=== PATIENT | female | born 1975 | race Caucasian/White ===

== ENCOUNTER 2017-04-28 17:44 | Emergency (ER) | payer BC ==
[2017-04-28] MEDS ORDERED: MECLIZINE HCL 25 MG TABLET PO ONE (18:33)
[2017-04-28] MEDS ORDERED: MECLIZINE HCL 25 MG TABLET ONE (18:37)
[2017-04-28 18:45] LABS: Hematocrit 39.9 % (37.0-47.0); Hemoglobin 13.5 gm/dL (12.5-16.0); Mean Cell Volume 91.1 fl (78-100); Mean Corpuscular Hemoglobin 30.8 pg (27-31); Mean Corpuscular Hgb Conc 33.8 g/dl (32-36); Mean Platelet Volume 9.6 fl (6.0-9.5); Neutrophil # 2.6 K/mm3 (1.3-6.0); Neutrophil % 53.2 % (42-75.0); Platelet Count 249 K/mm3 (150-450); Red Blood Count 4.38 M/mm3 (4.2-5.4)
[2017-04-28 18:46] LABS: Urine Bilirubin Negative (NEGATIVE); Urine Blood Negative /ul (NEGATIVE); Urine Ketone 5 mg/dL (NEGATIVE); Urine Nitrite Negative (NEGATIVE); Urine Protein Negative (NEGATIVE); Urine Specific Gravity 1.015 SP.GR. (1.005-1.010); Urine Urobilinogen Normal (NORMAL); Urine pH 6.5 pH (5.0-7.0)
[2017-04-28 18:59] LABS: Urine Appearance Clear; Urine Bacteria 1+; Urine Color Yellow; Urine RBC None Seen /hpf (0-5); Urine WBC TRACE /hpf (0-5)
[2017-04-28 19:00] LABS: Urine Other Crystal Few - 1+ /hpf
[2017-04-28 19:04] LABS: ALT 25 U/L (19-67); AST 19 U/L (0-48); Albumin * 4.2 gm/dl (3.4-5.0); Alkaline Phosphatase * 42 U/L (50-170); Anion Gap 13.4 mmol/L (6.8-13.8); BUN/Creatinine Ratio 21.5 (9.0-21.6); Bilirubin, Total 0.4 mg/dL (0.0-1.1); Blood Urea Nitrogen 20 mg/dL (3-23); Ca. Corrected For Albumin 8.6 mg/dL (8.4-10.2); Calcium * 9.1 mg/dL (7.9-10.9); Carbon Dioxide 30.1 mmol/L (24-32.6); Chloride 102 mmol/L (97-106); Glucose * 91 mg/dL (70-110); Potassium 3.5 mmol/L (3.4-4.6); Sodium 142 mmol/L (132-142); Total Protein 7.6 gm/dL (6.2-8.2); Troponin I Less than 0.017 ng/ml (0.00-0.10)
--- NOTE | 2017-04-28 19:45 | ERNOTE ---
Dizziness ER Record Date of Service: 04/28/17 Presenting Symptoms: dizziness Time Seen by Provider: 04/28/17 18:30 Source: patient Exam Limitations: no limitations Immunizations: IMMUNIZATION HX Immunizations Up to Date Yes History of Influenza Vaccine Yes Hx Pneumococcal Vaccination Yes Allergies/Adverse Reactions: Allergies Allergy/AdvReac Type Severity Reaction Status Date / Time No Known Allergies Allergy Unverified 04/28/17 18:00 Home Medications: HOME MEDICATIONS Meclizine HCl 25 mg PO TID PRN #12 tablet 04/28/17 [Last Taken Unknown] - History of Present Illness Narrative: Patient presents to the ED for feeling dizzy. She relates this is a spinning dizziness and it was noted to day at work, especially with turning her head. he relates her BP was high and she had been treated for HBP in the past but nothign in the last 5 years. No ringing or roaring. Spinning dizziness. No fever. no CP or SOB. no focal N/T/W. Has not seen anyone else for this. No other Sx with it. She thought it may have been her BP. She first noticed the Sx yesterday. Intermittent, especially with position changes Timing and Duration: better Associated Symptoms: Absent: ringing/roaring in ear, vomiting, headache, weakness Sense of movement: Present: spinning Decreased ability to stand/walk:: Absent: weak, cannot walk, cannot stand Usually:: Present: walks w/o assistance Modifying Factors - (Improves): Reports: other - rest Modifying Factors - (Worsens): Reports: changing position Prior Treament: Denies: recently seen Review of Systems - Review of Systems Constitutional: Absent: fever ENT: Absent: sore throat Respiratory: Absent: shortness of breath Cardiology: Absent: chest pain Gastrointestinal/Abdominal: Absent: abdominal pain Genitourinary: Absent: dysuria Skin: Absent: rash Neurological: Absent: weakness All Other Systems: All systems neg except as marked - Patient's Past Medical History Patient History - Medical: No pertinent hx Patient History - Cardiac/Respiratory: No pertinent hx, Hypertension Patient History - Cancer: No Hx of Cancer Patient History - Surgical Procedures: Hysterectomy Patient History - Other: None LMP (females 10-50): 6 years ago - Social History Living Situations: home Abuse History: No History of abuse Psych History: No pertinent hx Smoking Status: Never smoker Alcohol Use: none Drug Use: none - Immunizations Immunizations Up to Date: Yes Hx Pneumococcal Vaccination: Yes History of Influenza Vaccine: Yes Physical Exam - Physical Exam General Appearance: Present: alert, no apparent distress Head Exam: Present: normal inspection, no evidence of injury Eye Exam: Normal inspection: bilateral, PERRL: bilateral Ears, Nose, Throat: Present: normal ENT inspection. Absent: abnormal TM (R), abnormal TM (L) Neck: Present: normal inspection Respiratory: Present: no respiratory distress, normal breath sounds, no accessory muscle use Cardiovascular/Chest: Present: regular rate, rhythm, normal peripheral pulses Gastrointestinal/Abdominal: Present: normal bowel sounds, nontender, soft Back Exam: Present: normal range of motion Extremity Exam: Present: normal inspection, no edema Neurological Exam: Present: alert, oriented, normal mood/affect, no motor/ sensory deficits, landman II-XII nml as tested. Absent: motor weakness Skin Exam: Present: normal color, warm/dry ED Progress - Results and Orders Patient's Lab Results:: I have reviewed the patient's lab results. - Vital Signs Patient's Vital Signs:: I have reviewed the patient's vital signs. Vital Signs: Vital Signs 04/28/17 04/28/17 04/28/17 17:49 18:29 19:18 Temperature 36.7 C Pulse Rate 74 72 68 Respiratory 16 16 16 Rate Blood Pressure 168/98 166/88 176/92 O2 Sat by Pulse 100 100 100 Oximetry - EKG EKG: NSR EKG read: Interp. by me EKG Comments: NSR rate 79. Non-specific. No STEMI or acute ischemia - Progress/Reassessment Chief Complaint: Dizziness Progress Note-Subjective: 04/28/17 19:40 I offered the patient a head CT but she declines this. She understands risks and benefits. She wishes to go home and see her doctor tomorrow. BP 150/81. No suggestion clinically of strok, hypertensive emergency or urgency or other clear acute life threat. No ACS or other cardiac abnormality noted. She declines head CT. i disucssed warning signs and reasons to return as well as the need for close f/u. 04/28/17 19:41 Clinically this seems more like BPV. Departure Clinical Impression: Dizziness - Departure Disposition: Home self-care Condition: Stable Additional Instructions: Rest. Fluids. Meclizine as directed. See your doctor tomorrow for a re-check and to discuss your blood pressure. Blood pressure checks at home. Return if you change your mind about having the Head CT, develop numbness, tingling, weakness or if your condition worsens or changes in any way. Referrals: Lizzette Liang, [facility] [Primary Care Provider] - Prescriptions: Meclizine HCl 25 mg PO TID PRN #12 tablet PRN Reason: Vertigo
[2017-04-28 19:54] VITALS: BP 153/79
== END 2017-04-28 19:52 | disposition home or self-care (01) ==
LOC: ER 17:44
DX: R42 Dizziness and giddiness (principal)